=== PATIENT | female | born 1960 | race Caucasian/White ===

== ENCOUNTER → 2018-01-19 12:36 | Outpatient (CLI) | payer BC, SELFPAY ==
[2018-01-19 14:15] LABS: TSH (W/Ref FT4) 0.88 uIU/mL (0.358-3.74)
== END ==
PROVIDERS: PCP General Practice; Visit Provider General Practice
DX: E04.9 Nontoxic goiter, unspecified (principal)
CPT/HCPCS: 36415; 84443

== ENCOUNTER 2018-04-24 06:09 | Day surgery (SDC) | payer BC, SELFPAY ==
[2018-04-24 06:18] VITALS: BP 128/85; PULSE 82; RESP 16; TEMP 36.9; O2SAT 98
[2018-04-24] MEDS: Lactated Ringers 1,000 ML 80 ML IV (06:55)
--- NOTE | 2018-04-24 07:40 | W.PM.HP.N ---
Date of service: 04/24/18 Time of Service: 07:40 Assessment and Plan (1) Diverticulitis: Current visit: Yes Status: Chronic Patient with history of diverticulitis, with most recent flare in 02/2018 treated with Augmentin. She has no family history of colon cancer. She has not had any changes in bowel habits and her last Colonoscopy was in 2011. Will schedule colonoscopy 6-8wks out since patient's recent diverticulitis flare. -Discussed colonoscopy bowel prep and procedure. Discussed complications of procedure; bleeding, perforation, sedation/medication risks. Questions were answered to patient's satisfaction. No guarantees were implied or given. History of Present Illness Chief Complaint: Diverticulosis Narrative: 57 y/o female with history of multiple bouts of diverticulitis since August 2017, with most recent flare first week of 02/2018 is here today for colonoscopy pre-op. Last Colonoscopy was performed in 2011. 01/27/18 she reports that she started to have LLQ pain, that was dull and intermittent in nature, which progressed to a constant dull, ache by 02/08/18 along with chills. She denies having a fever. These symptoms were the same symptoms she had experienced in August of 2017 when she was diagnosed with diverticulitis. She called this office and spoke with Dr. Diaz and was started on Augmentin, which was completed on 02/18/18. Since completing the Augmentin she reports that her symptoms have improved, however she continues to feel a dull, ache in the LLQ intermittently. She denies any family history of colon cancer. She denies any changes in her bowel habits, melena, hematochezia. She denies any history of abnormal bleeding. Review of Systems Review of Systems Constitutional: Denies fever, chills, malaise, fatigue, weight loss, sweating; Neurological: denies headache, seizures, syncope; weakness Eyes: denies loss of vision, double vision, blurry vision, wears corrective lenses; Ears,nose, throat: denies loss of hearing, tinnitus, vertigo, epistaxis, hoarseness, throat swelling. Cardiac: denies chest pain with exertion, palpation, pain shooting from chest into arm. Respiratory: denies cough, sputum production, chest congestion, wheezing. Gastrointestinal: denies abdominal pain, dysphagia, nausea, vomiting, hematamesis, hematochezia, melena. Genitourinary: denies frequency, urgency, hesitancy, incontinence, and dysuria. Musculoskeletal: denies arthralgia, myalgia, fracture, joint pain, joint swelling, back pain. Psychiatric: denies anxiety, depression, difficulty concentrating, difficulty sleeping, irritability. All systems reviewed & are unremarkable except as noted in HPI and below PFSH Medical History Cervical cancer Hyperlipidemia Melanosis Tobacco use Social History Smoking/Tobacco Use Status: Current every day Surgical History Abdominal hysterectomy tubal ligation Meds Home Medications Medication Instructions Recorded Confirmed Type ibuprofen [Ibuprofen IB] 600 mg PO PRN 08/18/12 04/22/18 History multivitamin [Daily Multi-Vitamin] 1 ea PO DAILY 08/18/12 04/24/18 History ranitidine HCl [Zantac 75] 75 mg PO PRN 08/18/12 04/24/18 History cholecalciferol (vitamin D3) 1,000 unit PO DAILY 08/05/14 04/24/18 History vitamin E (dl, acetate) 400 unit PO DAILY 10/27/14 04/24/18 History acetaminophen [Tylenol Extra 500 mg PO PRN PRN 08/21/17 04/24/18 History Strength] calcium carbonate 500 mg calcium 500 mg PO BID tab 02/23/18 04/24/18 History (1,250 mg) tablet Allergies Allergy/AdvReac Type Severity Reaction Status Date / Time erythromycin base Allergy Intermediate Rash/Hives Verified 04/24/18 06:33 [Erythromycin Base] Exam Narrative Exam Narrative: General: Awake, alert, oriented x 3, well groomed Neurological: cranial nerves II-12 grossly intact, moves all extremities, no focal deficits. HEENT: Normacephalic, atruamatic, pupils are equal, round, and reactive to light, extraocular muscles intact, mucousa moist and pink. Neck: normal visual inspection, supple, trachea midline. Heart: Regular rate, rhythm Respiratory: No wheezing, cough, sputum production, or chest congestion. breathing unlabored. Abdomen: Soft, non-tender, non-distended, no hernias. Extremities: no cyanosis, clubbing or edema. Integument: warm, dry, normal turgor, no rashes, or lesion. Results Last Vital Signs Temp 36.9 C 04/24/18 06:18 Pulse 82 04/24/18 06:18 Resp 16 04/24/18 06:18 BP 128/85 04/24/18 06:18 Pulse Ox 98 04/24/18 06:18
--- NOTE | 2018-04-24 08:03 | BOWEL_PTH ---
PATIENT: Daniella Prescott LOC: [facility] U#:[id number] AGE/SX: 57/F ROOM: RE04/24/[address]: Sp Yip DO : 1960 BED: DIS: 04/24/2018 SPEC #: [id number] RECD: 04/24/18 12:52 STATUS: ESTELLE REQ #: [id number] MARTINEZ: 04/24/18 08:[address]: Sp Yip DEPT: Surgical Specimen RECD BY: Mouna Armenta ENTERED: 04/24/18 12:53 SP TYPE: Bowel OTHR DR: Jonah Moore Tissues: 1 - BIOPSY BOWEL Procedures: GROSS AND MICRO LEVEL 4 Comments: [id number]
--- NOTE | 2018-04-24 08:14 | W.COLOREPORT ---
Date of service: 04/24/18 Time of Service: 08:14 Colonoscopy Report Date of procedure: 04/24/18 Pre-op diagnosis general: Diverticulitis Post-op diagnosis procedure note: other (1. Rectal polyp 2. Mild sigmoid diverticulosis) Procedure: Colonoscopy to the cecum with biopsy by cold Surgeon: Sp Yip Anesthesia proc note operative: MAC (Keturah Joe CRNA; ASA 2 Mallampati class II) Estimated blood loss (mL): 1 Pathology: other (Rectal polyp) Complications: None Disposition: same day Indications: 57 y/o female with history of multiple bouts of diverticulitis since August 2017, with most recent flare first week of 02/2018 is here today for colonoscopy pre-op. Last Colonoscopy was performed in 2011. 01/27/18 she reports that she started to have LLQ pain, that was dull and intermittent in nature, which progressed to a constant dull, ache by 02/08/18 along with chills. She denies having a fever. These symptoms were the same symptoms she had experienced in August of 2017 when she was diagnosed with diverticulitis. She called this office and spoke with Dr. Diaz and was started on Augmentin, which was completed on 02/18/18. Since completing the Augmentin she reports that her symptoms have improved, however she continues to feel a dull, ache in the LLQ intermittently. She denies any family history of colon cancer. She denies any changes in her bowel habits, melena, hematochezia. She denies any history of abnormal bleeding Prep: Miralax/Dulcolax (Prep quality excellent) Procedure Start Time: 07:50 Procedure End Time: 08:05 Retraction Time: 9 Findings: In examining the colon from cecum to anus, patient was noted to have some mild sigmoid diverticulosis but no other abnormalities were noted in the colon. In the rectum one polyp was identified less than 1 cm in greatest diameter and removed by cold biopsy forceps no other abnormalities are noted. Procedure Description: The patient was seen in the day surgery waiting area. Her identification was confirmed, and procedure checked. She was then brought to the procedure room. Monitoring for telemetry, blood pressure, oxygen saturation, and end tidal CO2 monitoring were applied. An appropriate time out was performed to confirm, identification, allergies, medication, procedure, was performed. Sedation was titrated for affect by the [employer]ISER; Once adequate sedation was achieved, I performed a inspection of the external perineum, and a digitial rectal examination. No significant external abnormalities were noted. On digital rectal examination, there was no blood, no masses, good rectal tone. I advanced the colonoscope from the anus to the cecum under direct visualization. The cecum was identified by the ileal-cecal valve, and the appendiceal orifice. The scope was then withdrawn in circumferential manner from the cecum to the rectum. The patient was noted to have some mild sigmoid diverticulosis but no other abnormalities of the colon were found. The scope was then withdrawn into the rectum, and retroflexed. A less than 1 cm in greatest diameter polyp was identified in the rectum and removed by cold biopsy forceps; no other abnormalities were noted of the rectum and anorectum. The scope was then withdrawn, terminating the procedure. There were no complications during the procedure, and the patient tolerated the procedure well. She was returned to the day surgery recovery area in good condition. Plan: Endoscopy confirmatory for diverticular attack, there was no evidence of malignancy identified or other pathology. We will await pathology in regards to rectal polyp.
--- NOTE | 2018-04-24 08:23 | PDOC.DSDIS_ITS ---
Discharge Plan Disposition Patient Disposition: HOME Condition: Good Discharge Details Reason For Visit: colonoscopy for diverticulitis Attending Provider: Sp Yip Primary Care Provider: Jonah Moore Home Meds and New Rx's Prescriptions: Continue calcium carbonate [Calcium 500] 500 mg calcium (1,250 mg) tablet 500 mg PO BID RF: 0 multivitamin [Daily Multi-Vitamin] 1 EACH tablet 1 ea PO DAILY RF: 0 ranitidine HCl [Zantac 75] 75 MG tablet 75 mg PO PRN RF: 0 ibuprofen [Ibuprofen IB] 200 MG tablet 600 mg PO PRN RF: 0 vitamin E (dl, acetate) 400 UNIT capsule 400 unit PO DAILY RF: 0 cholecalciferol (vitamin D3) 1,000 UNIT capsule 1,000 unit PO DAILY RF: 0 acetaminophen [Tylenol Extra Strength] 500 MG tablet 500 mg PO PRN PRNRF: 0 Discharge Instructions Instructions: Colonoscopy (DC) Stand Alone Forms: Colonoscopy Post Instructions, Obinna Lombardo (DSU) Activity:: Activity as Tolerated Diet:: As Tolerated Discharge Orders Discharge Orders: Discharge Order (Routine); Ordered 04/24/18 Ordered By: Sp Yip DS: Diagnosis Discharge Diagnosis (1) Diverticulitis: Status: Chronic Asessment and Plan: Colonoscopy performed: Colonoscopy Report Date of procedure: 04/24/18 Pre-op diagnosis general: Diverticulitis Post-op diagnosis procedure note: other (1. Rectal polyp 2. Mild sigmoid diverticulosis) Procedure: Colonoscopy to the cecum with biopsy by cold Surgeon: Sp Yip Anesthesia proc note operative: MAC (Keturah Joe CRNA; ASA 2 Mallampati class II) Estimated blood loss (mL): 1 Pathology: other (Rectal polyp) Complications: None Disposition: same day Indications: 57 y/o female with history of multiple bouts of diverticulitis since August 2017 , with most recent flare first week of 02/2018 is here today for colonoscopy pre -op. Last Colonoscopy was performed in 2011. 01/27/18 she reports that she started to have LLQ pain, that was dull and intermittent in nature, which progressed to a constant dull, ache by 02/08/18 along with chills. She denies having a fever. These symptoms were the same symptoms she had experienced in August of 2017 when she was diagnosed with diverticulitis. She called this office and spoke with Dr. Diaz and was started on Augmentin, which was completed on 02/18/18. Since completing the Augmentin she reports that her symptoms have improved, however she continues to feel a dull, ache in the LLQ intermittently. She denies any family history of colon cancer. She denies any changes in her bowel habits, melena, hematochezia. She denies any history of abnormal bleeding Prep: Miralax/Dulcolax (Prep quality excellent) Procedure Start Time: 07:50 Procedure End Time: 08:05 Retraction Time: 9 Findings: In examining the colon from cecum to anus, patient was noted to have some mild sigmoid diverticulosis but no other abnormalities were noted in the colon. In the rectum one polyp was identified less than 1 cm in greatest diameter and removed by cold biopsy forceps no other abnormalities are noted. Procedure Description: The patient was seen in the day surgery waiting area. Her identification was confirmed, and procedure checked. She was then brought to the procedure room. Monitoring for telemetry, blood pressure, oxygen saturation, and end tidal CO2 monitoring were applied. An appropriate time out was performed to confirm, identification, allergies, medication, procedure, was performed. Sedation was titrated for affect by the [employer]SE [employer]UBING BACKER; Once adequate sedation was achieved, I performed a inspection of the external perineum, and a digitial rectal examination. No significant external abnormalities were noted. On digital rectal examination, there was no blood, no masses, good rectal tone. I advanced the colonoscope from the anus to the cecum under direct visualization. The cecum was identified by the ileal-cecal valve, and the appendiceal orifice. The scope was then withdrawn in circumferential manner from the cecum to the rectum. The patient was noted to have some mild sigmoid diverticulosis but no other abnormalities of the colon were found. The scope was then withdrawn into the rectum, and retroflexed. A less than 1 cm in greatest diameter polyp was identified in the rectum and removed by cold biopsy forceps; no other abnormalities were noted of the rectum and anorectum. The scope was then withdrawn, terminating the procedure. There were no complications during the procedure, and the patient tolerated the procedure well. She was returned to the day surgery recovery area in good condition. Plan: Endoscopy confirmatory for diverticular attack, there was no evidence of malignancy identified or other pathology. We will await pathology in regards to rectal polyp.
[2018-04-24 08:40] VITALS: BP 127/70; PULSE 60; RESP 20; TEMP 36.9; O2SAT 99
== END 2018-04-24 09:15 | disposition home or self-care (01) ==
PROVIDERS: PCP General Practice; Visit Provider Surgery
PROC: 0DJD8ZZ Inspection of Lower Intestinal Tract, Via Natural or Artificial Opening Endoscopic (ICD-10-PCS; CPT 45378; principal; 2018-04-24 07:30)
DX: K57.92 Diverticulitis of intestine, part unspecified, without perforation or abscess without bleeding (principal); K57.30 Diverticulosis of large intestine without perforation or abscess without bleeding; K62.1 Rectal polyp; K21.9 Gastro-esophageal reflux disease without esophagitis
CPT/HCPCS: 45380; 88305; NC

== ENCOUNTER 2018-11-13 10:14 | Outpatient (CLI) | payer BC, SELFPAY ==
--- NOTE | 2018-11-13 10:24 | DI.RAD_ITS ---
SYMPTOM/DIAGNOSIS: PAIN LEFT HIP: Two views. The left hip is well maintained. The articular surfaces are unremarkable. The bones are intact and normally mineralized. The sacroiliac joints and symphysis pubis are intact. The soft tissues are unremarkable. IMPRESSION: Negative left hip.
--- NOTE | 2018-11-13 10:24 | DI.RAD_ITS ---
SYMPTOM/DIAGNOSIS: PAIN LEFT SHOULDER: Multiple views. No bone or joint abnormality is identified. The soft tissues are unremarkable. IMPRESSION: No acute abnormality.
== END 2018-11-13 10:34 ==
PROVIDERS: PCP General Practice; Visit Provider General Practice
DX: M25.552 Pain in left hip (principal); M25.512 Pain in left shoulder
CPT/HCPCS: 73030; 73502

== ENCOUNTER 2018-11-27 08:58 | Outpatient (REF) | payer BC, SELFPAY ==
--- NOTE | 2018-11-27 08:50 | PAPFT_PTH ---
PATIENT: Daniella Prescott LOC: [facility] U#:[id number] AGE/SX: 58/F ROOM: RE11/27/[address]: Nadira Ellis MD : 1960 BED: DIS: 11/27/2018 SPEC #: [id number] RECD: 11/27/18 13:17 STATUS: ESTELLE REQ #: [id number] MARTINEZ: 11/27/18 08:[address]: Nadira Ellis DEPT: [facility] Cytology RECD BY: Mouna Armenta ENTERED: 11/27/18 13:18 SP TYPE: PAPFT OTHR DR: Jonah Moore Tissues: 1 - CX/ENDOCX FOR PAP SMEARS Procedures: PAP THIN PREP/[facility] Screening Comments: [id number]
== END 2018-11-27 09:18 ==
LOC: LBN 08:58
PROVIDERS: PCP General Practice; Visit Provider Obstetrics & Gynecology
DX: Z12.4 Encounter for screening for malignant neoplasm of cervix (principal)
CPT/HCPCS: 88142

== ENCOUNTER 2018-12-15 00:55 | Outpatient (CLI) | payer BC, SELFPAY ==
--- NOTE | 2018-12-15 07:30 | DI.MAMMO_ITS ---
SYMPTOM/DIAGNOSIS: SCREENING, Z12.31 MAMMOGRAM: Mammograms were interpreted according to the usual protocol including computer analysis with CAD system, tomosynthesis and C view imaging. The breasts are of moderate density with fairly symmetrical distribution of fibroglandular tissue. No dominant mass or clumped microcalcification is identified in either breast. The current examination is compared with previous examinations including 12/2017 and there has been no gross interval change in appearance in comparison with the previous studies. CONCLUSION: No specific evidence of malignancy at this time. Routine screening examinations are suggested at yearly intervals due to the family history of breast carcinoma. Category 1 breast density category B. MQSA ASSESSMENT OF FINDINGS: Negative. Category 1. Patient will receive a letter notifying them of these results. BI-RADS category B. There are scattered areas of fibroglandular density.
== END 2018-12-15 01:15 ==
PROVIDERS: PCP General Practice; Visit Provider Obstetrics & Gynecology
DX: Z12.31 Encounter for screening mammogram for malignant neoplasm of breast (principal); Z80.3 Family history of malignant neoplasm of breast
CPT/HCPCS: 77063; 77067

== ENCOUNTER 2019-05-28 10:02 | Outpatient (REF) | payer BC, SELFPAY ==
[2019-05-28 12:09] LABS: HGB 14.7 g/dL (12.0-15.5); Mean Corp. HGB Concentration 32.7 g/dL (32.0-36.0); Mean Corpuscular Hemoglobin 27.1 pg (27.0-33.0); Mean Corpuscular Volume 82.9 fL (80-95); Mean Platelet Volume 10.3 fL (8.0-11.0); Platelet Count 408 x1000/uL (130-400); RBC 5.43 m/cumm (4.00-5.20); RBC Distribution Width 13.6 % (11.7-14.6); White Blood Cell Count 7.99 k/cumm (4.4-10.8)
[2019-05-28 12:12] LABS: ALT 27 U/L (14-59); AST 14 U/L (15-37); Albumin 4.3 g/dL (3.4-5.0); Alkaline Phosphatase 81 U/L (46-116); Anion Gap 9.8 mmol/L (3-11); BUN 19 mg/dL (7-18); Bilirubin, Total 0.5 mg/dL (0.2-1.0); CO2 28.2 mmol/L (21.0-32.0); CREATININE 0.78 mg/dL (0.55-1.02); Calcium 9.8 mg/dL (8.5-10.1); Calculated LDL 190 mg/dL; Chloride 104 mmol/L (98-107); Cholesterol 273 mg/dL (<200); Glucose 87 mg/dL (74-106); HDL Cholesterol 43 mg/dL (40-60); Potassium 4.4 mmol/L (3.5-5.1); Sodium 142 mmol/L (136-145); TSH (W/Ref FT4) 1.29 uIU/mL (0.36-3.74); Total Protein 7.7 g/dL (6.4-8.2); Triglyceride 200 mg/dL (<150)
[2019-05-31 11:32] LABS: Hepatitis C Ab w Rflx HCV PCR Negative (Negative)
== END 2019-05-28 10:22 ==
LOC: NCHCN 10:02
PROVIDERS: PCP Nurse Practitioner Family; Visit Provider Nurse Practitioner Family
DX: Z00.00 Encounter for general adult medical examination without abnormal findings (principal); Z13.220 Encounter for screening for lipoid disorders; Z13.29 Encounter for screening for other suspected endocrine disorder; Z13.0 Encounter for screening for diseases of the blood and blood-forming organs and certain disorders involving the immune mechanism; Z13.228 Encounter for screening for other metabolic disorders; Z11.59 Encounter for screening for other viral diseases
CPT/HCPCS: 80053; 80061; 85027; 86803; 84443

== ENCOUNTER 2019-08-12 06:20 | Emergency (ER) | payer BC, SELFPAY ==
[2019-08-12] VITALS (123 sets, daily range): BP systolic 110–159; BP diastolic 48–92; PULSE 57–86; RESP 11–34; TEMP 36.6; O2SAT 91–98
--- NOTE | 2019-08-12 06:45 | DI.RAD_ITS ---
EXAM: XR CHEST 2V PA LATERAL CLINICAL HISTORY: chest pain TECHNIQUE: 2D digital imaging was performed. COMPARISON: No exams were available for comparison FINDINGS: MEDIASTINUM: Normal. HEART: Normal. PULMONARY VASCULATURE: Normal. LUNGS: Clear. PLEURAL SPACE: No pleural effusion or pneumothorax. BONE:Normal. OTHER FINDINGS:Normal. IMPRESSION: No acute pulmonary findings. DATA REPOSITORY: RADIATION DOSE DELIVERED:
[2019-08-12] MEDS: Normal Saline Flush 10 ML SYR IVP (06:51)
[2019-08-12] MEDS: Aspirin 81 MG CHEW 324 MG CH (06:51)
--- NOTE | 2019-08-12 06:56 | W.ED.GENAD ---
Discharge Plan Disposition Patient Disposition: HOME Condition: Stable Discharge Details Chief Complaint: Chest Pain Clinical Impression: Palpitations, Chest pain Primary Care Provider: Corwin Zuniga ED Provider: Sixto Mcneal Home Meds and New Rx's Prescriptions: New aspirin 325 mg tablet 325 mg PO DAILY Qty: 30 RF: 0 Continued calcium carbonate [Calcium 500] 500 mg calcium (1,250 mg) tablet 500 mg PO BID RF: 0 biotin 1 mg capsule 1 mg PO DAILY RF: 0 multivitamin [Daily Multi-Vitamin] 1 EACH tablet 1 ea PO DAILY RF: 0 cholecalciferol (vitamin D3) 1,000 UNIT capsule 1,000 unit PO DAILY RF: 0 acetaminophen [Tylenol Extra Strength] 500 MG tablet 500 mg PO PRN PRNRF: 0 famotidine 20 mg Tablet 20 mg PO DAILY RF: 0 Fish Oil 300-500 mg Capsule 1 cap PO DAILY RF: 0 Discharge Instructions Instructions: Chest Pain (ED), Palpitations (ED) Additional Instructions: Please contact your primary care physician to arrange follow-up. Call today. You should have an outpatient stress test scheduled as soon as possible. Return to the ER for any worsening or new concerning symptoms. Referrals: Corwin Zuniga, [employer]PERATIONS SUPERVISOR 2ND [employer]IFT [Primary Care Provider] - Discharge Data Discharge Date/Time-TO BE ENTERED AT DEPARTURE: 08/12/19 11:00 Medical Decision Making <Malachi Mills MD - Last Filed: 08/12/19 19:57> Patient presenting for evaluation of a week's worth of fleeting palpitations and central chest pain as well as more prolonged achiness in the left arm and jaw that has occurred the last couple of nights. Currently, essentially pain-free. She still smokes a little bit although has cut back a great deal. Father did have heart disease/heart attack in his early 50s. No other cardiac risk factors. No leg pain or leg swelling. Initial EKG is nonspecific and nondiagnostic. We will give the patient aspirin while starting work-up. Will obtain laboratory studies including 2 troponins and d-dimer. Chest x-ray ordered. Patient is low risk for PE by revised Allen and Well's score. Assuming normal troponins, she is also low risk for cardiac disease based on HEART score and EDACS. 8:20 - Patient's labs are fine. CBC, CMP, coags unremarkable. First troponin and d-dimer negative. Chest x-ray unremarkable per my review and preliminary radiology read. Plan for repeat EKG and troponin. If negative discharge to follow-up with PCP for outpatient stress testing and Holter monitor. Care signed out to Dr. Mcneal. Imaging Data Radiologic Study: Attestation: I personally reviewed and interpreted this imaging study as follows: Imaging: X-Ray My impression: Negative Radiologist's impression: TECHNIQUE: Imaging protocol: XR of the chest Views: 2 views. COMPARISON: No relevant prior studies available. FINDINGS: Lungs: Unremarkable. No consolidation. Pleural space: Unremarkable. No pleural effusion. No pneumothorax. Heart/Mediastinum: Unremarkable. No cardiomegaly. Bones/joints: Unremarkable. IMPRESSION: No acute findings. Dictated and Authenticated by: Luis Barnes MD. Lab Data Lab results reviewed: Yes I reviewed the patient's lab results. ECG Data Attestation: I personally reviewed and interpreted this ECG (s) as follows: Prior ECG tracings: not available for review Interpretation: Normal sinus rhythm at a rate of 74. Normal intervals and axis. Nonspecific ST changes. Nondiagnostic. <Sixto Mcneal MD - Last Filed: 08/22/19 09:24> Medical Records Medical records narrative: Care signed out by Dr. Mills, please see his documentation regarding initial ED presentation and course. Plan at signout was to follow-up on delta troponin and repeat ECG and if no significant changes likely discharge with outpatient follow-up. Repeat ECG was reviewed and interpreted by me: Sinus rhythm 64 bpm, nonspecific ST findings with T wave inversion noted in lead III, no significant changes from prior ECG. Delta troponin negative and unchanged. Patient was reassessed and notes asymptomatic without chest pain. I called and spoke with the patient's primary care provider, Corwin Zuniga and discussed recommendation for outpatient follow-up and stress testing. Corwin will be ordering stress test today. Plan discussed with patient. Plan for close outpatient follow-up. Disposition decision was made weighing the risks and benefits of hospitalization versus outpatient treatment, the risk for further decompensation, and the patient's wishes. The patient was stable and requested discharge. Prior to discharge, my usual and customary return precautions were reviewed with the patient - this included follow-up instructions and reason to return to the emergency department if condition worsens, does not improve as expected, or other new concerns arise. HPI <Malachi Mills MD - Last Filed: 08/12/19 19:57> General Mode of arrival: ambulatory. Date/Time Provider Initiated Documentation: 08/12/19 06:34. Limitations to Documentation: no limitations. Information obtained by: patient and RN notes reviewed. HPI Narrative: Patient presents to ED for evaluation of palpitations and chest pain. Patient reports that for the last week, she has experienced palpitations with associated sharp central chest pain that lasts less than 10 seconds in duration. It has been intermittent on and off for the last week. In the last couple of days, she has developed an achy pain in the left shoulder and upper arm. There is no associated chest pain. The arm pain sometimes radiates to the jaw and down into the hand. There is no associated shortness of breath. There is no dizziness or diaphoresis. She has had some intermittent nausea and fatigue. The nausea is not associated with the pain. Pain seemed worse in her arm Friday night. There is essentially no discomfort currently other than slight ache in the left shoulder. She has no fever or cough. She has no leg pain or leg swelling. Related Data Home Medications Medication Instructions Recorded Confirmed multivitamin [Daily Multi-Vitamin] 1 ea PO DAILY 08/18/12 08/12/19 cholecalciferol (vitamin D3) 1,000 unit PO DAILY 08/05/14 08/12/19 acetaminophen [Tylenol Extra 500 mg PO PRN PRN 08/21/17 08/12/19 Strength] calcium carbonate 500 mg calcium 500 mg PO BID tab 02/23/18 08/12/19 (1,250 mg) tablet biotin 1 mg capsule 1 mg PO DAILY 11/27/18 08/12/19 Fish Oil 1 cap PO DAILY 08/12/19 08/12/19 aspirin 325 mg PO DAILY #30 tab 08/12/19 famotidine 20 mg PO DAILY 08/12/19 08/12/19 Previous Rx's Medication Instructions Recorded aspirin 325 mg PO DAILY #30 tab 08/12/19 Allergies Allergy/AdvReac Type Severity Reaction Status Date / Time erythromycin base Allergy Intermediate Rash/Hives Verified 08/12/19 06:28 [Erythromycin Base] General Stated Complaint: Chest Pain ALFONSO: 2 Review of Systems <Malachi Mills MD - Last Filed: 08/12/19 19:57> Narrative: 03/22 Review of Systems completed and is negative except as stated above in HPI (Systems reviewed: Const, Eyes, ENT, Resp, CV, GI, , MSK, Skin, Neuro) PFSH <Malachi Mills MD - Last Filed: 08/12/19 19:57> Medical History Cervical cancer Hyperlipidemia Melanoma of right upper arm (Inactive 10/30/15) Melanosis Tobacco use Surgical History Abdominal hysterectomy H/O colonoscopy (Resolved 04/24/18) dr powers, no abnormalities, repeat 10 years tubal ligation Social History Smoking/Tobacco Use Status: Current-Occasional Alcohol Intake: never Drug use: Never Substance use type: does not use Do you feel safe at home: Yes Do you feel safe in your relationship?: Yes Exam <Malachi Mills MD - Last Filed: 08/12/19 19:57> Narrative Exam Narrative: Vitals: Afebrile. Normal vitals with blood pressure being a little elevated. Room air saturation mid 90s. Const: WDWN male in NAD. HEENT: NC/AT. Normal facial exam. Eyes: Normal conjunctiva and sclera. Neck: Supple. Trachea midline. Lungs: Normal respiratory effort. Lungs are clear. Cor: RRR with mumur. Good distal pulses. GI: Soft. NT/ND. No guarding or rebound. Neuro: A+O x 3. Normal speech, mentation, gait. Cranial nerves II - XII grossly intact. No gross motor or sensory deficit. Ext: No C/C/E. No calf tenderness. Skin: Warm and dry without rash. Course <Malachi Mills MD - Last Filed: 08/12/19 19:57> Vital Signs Vital signs: Vital Signs Temperature 98 F 08/12/19 06:23 Pulse 86 08/12/19 06:23 Respiratory Rate 12 08/12/19 06:23 Pulse Oximetry 95 08/12/19 06:23 Temperature 98 F 08/12/19 06:23 Temperature Source Oral 08/12/19 06:23 Pulse 86 08/12/19 06:23 Respiratory Rate 20 08/12/19 06:30 Respiratory Effort Non-Labored 08/12/19 06:30 Respiratory Depth Normal 08/12/19 06:30 Respiratory Pattern Normal 08/12/19 06:30 Blood Pressure Position Sitting 08/12/19 06:23 Pulse Oximetry 95 08/12/19 06:23 Oxygen Delivery Method Room Air 08/12/19 06:23 Oxygen Flow Rate 0 08/12/19 06:23 Pain Level 1 08/12/19 06:30 Sign Out <Malachi Mills MD - Last Filed: 08/12/19 19:57> Sign Out Data: Sign Out Comment: Pending repeat troponin and EKG Last updated by Malachi Mills MD at 08/12/19 08:25
[2019-08-12 07:02] LABS: Abs Immature Grans 0.01 k/cumm (0.0-0.09); Absolute Basophil Count 0.04 k/cumm (0.0-0.2); Absolute Eosinophil Count 0.13 k/cumm (0.0-0.7); Absolute Lymphocyte Count 2.66 k/cumm (1.2-3.4); Absolute Neutrophil Count 6.89 k/cumm (1.2-6.7); Basophils % 0.4; Eosinophils % 1.3; HCT 45.6 % (36.0-46.0); HGB 15.1 g/dL (12.0-15.5); Immature Grans % 0.1 %; Lymphocytes % 25.8; Mean Corp. HGB Concentration 33.1 g/dL (32.0-36.0); Mean Corpuscular Hemoglobin 27.1 pg (27.0-33.0); Mean Corpuscular Volume 81.7 fL (80-95); Mean Platelet Volume 10.4 fL (8.0-11.0); Monocytes % 5.8; Neutrophils % 66.6; Platelet Count 374 x1000/uL (130-400); RBC 5.58 m/cumm (4.00-5.20); RBC Distribution Width 14.1 % (11.7-14.6); White Blood Cell Count 10.33 k/cumm (4.4-10.8)
[2019-08-12 07:16] LABS: PTT Activated 27.6 sec (21.0-31.4); Prothrombin Time 9.8 sec (9.3-11.0)
[2019-08-12 07:23] LABS: ALT 22 U/L (14-59); AST 14 U/L (15-37); Albumin 4.2 g/dL (3.4-5.0); Alkaline Phosphatase 61 U/L (46-116); Anion Gap 11.3 mmol/L (3-11); BUN 17 mg/dL (7-18); Bilirubin, Total 0.5 mg/dL (0.2-1.0); CO2 26.7 mmol/L (21.0-32.0); CREATININE 0.77 mg/dL (0.55-1.02); Calcium 9.1 mg/dL (8.5-10.1); Chloride 105 mmol/L (98-107); Glucose 105 mg/dL (74-106); Magnesium 1.9 mg/dL (1.8-2.4); Potassium 3.9 mmol/L (3.5-5.1); Sodium 143 mmol/L (136-145); Total Protein 7.7 g/dL (6.4-8.2); Troponin I < 0.05 ng/Ml (<0.06)
--- NOTE | 2019-08-12 07:44 | DI.VRAD_ITS ---
PROCEDURE INFORMATION: Exam: XR Chest, 2 Views Exam date and time: 08/12/2019 6:48 AM Age: 59 years old Clinical indication: Other: Chest pain TECHNIQUE: Imaging protocol: XR of the chest Views: 2 views. COMPARISON: No relevant prior studies available. FINDINGS: Lungs: Unremarkable. No consolidation. Pleural space: Unremarkable. No pleural effusion. No pneumothorax. Heart/Mediastinum: Unremarkable. No cardiomegaly. Bones/joints: Unremarkable. IMPRESSION: No acute findings. Dictated and Authenticated by: Luis Barnes MD. Ordering:CLARISA Ly MD
[2019-08-12 07:49] LABS: D-Dimer 414 ng/mlFEU (<500)
[2019-08-12 10:10] LABS: Troponin I < 0.05 ng/Ml (<0.06)
== END 2019-08-12 11:00 | disposition home or self-care (01) ==
PROVIDERS: Emergency Medicine; Emergency Provider Student in an Organized Health Care Education/Training Program; PCP Nurse Practitioner Family
DX: R00.2 Palpitations (principal); R07.9 Chest pain, unspecified; F17.210 Nicotine dependence, cigarettes, uncomplicated
CPT/HCPCS: 36415; 80053; 93005; 99285; 71046; 83735; 84484; 85025; 85379; 85610; 85730; 93010

== ENCOUNTER 2019-08-17 00:07 | Outpatient (CLI) | payer BC, SELFPAY ==
--- NOTE | 2019-08-17 14:00 | ETT_ITS ---
APPROVED REPORT Exam: Exercise Treadmill Patient Location: Out-Patient Room/Bed: Stress Nurse: Sharonda Singh RN BMI: 30.46 Baseline Rhythm: Sinus Rhythm Indications: Episode of chest pain with radiation into her left arm and neck. Intermittent palpitatio ns Medical History Cardiac Medications: Aspirin Allergies: Erythromycin Cardiac Risk Factors: FHX of CAD, Smoking Pretest Chest Pain Characteristics: Non-exertional Chest pain Exercise History: Physically active Lung Sounds: Clear to auscultation Heart Sounds: Regular Stress Test Details Test: Exercise stress testing was performed using a Marcell protocol. Rest Stress HR Resting HR Supine: 56 bpm Max Heart Rate (APMHR): 161 bpm Resting HR Standin bpm Target HR (85% APMHR): 136 bpm Max HR Achieved: 167 bpm % of APMHR: 103 Recovery HR: 79 bpm HR response to stress: Normal HR response to stress BP Resting BP Supine: 130/70 mmHg Resting BP Standin/80 mmHg Max BP: 180/70 mmHg Recovery BP: 115/76 mmHg ECG Resting ECG: Sinus Rhythm Stress ECG: Sinus Tachycardia ST Change: No significant ST segment changes Arrhythmia: None Recovery ECG: Sinus Rhythm Recovery ST Change: No significant ST segment changes Recovery Arrhythmia: Rare PVC Clinical Reason for Termination: Fatigue Stress Symptoms: Very mild (1 out of 10) chest discomfort during peak exercise, lasting only few seco nds in duration. Exercise duration: 9 min20 sec Highest Stage Reached: Stage 4: 4.2 mph at 16% grade. Exercise capacity: 10.72 METs Functional Capacity: Average Capacity Stress ECG Conclusion 1. The patient exercised for 9 minutes (11 METS). Rate-pressure product was 23,000. 2. The patient had no symptoms concerning for ischemia. 3. There is no evidence of ischemia on the ECG at this level of exertion. 4. The Flores Score ( 9) estimates an annual cardiovascular mortality of 0% and a five year survival of 95%. Using the Flores Score there is a low probability of any angiographic coronary disease. Protocol Used: Marcell Protocol Stress Test Summary STAGE Time (mins) Speed (mph) Grade (%) HR BP SYMPTOMS METS Supine 56 130/70 Standing 71 125/80 1 3 1.7 10 120 120/80 4.6 2 6 2.5 12 146 115/60 7 3 9 3.4 14 158 140/70 10.2 4 12 4.2 16 160 12.9 1 min recovery 124 180/70 3 min recovery 94 130/74 6 min recovery 79 115/76
== END 2019-08-17 00:27 ==
PROVIDERS: PCP Nurse Practitioner Family; Visit Provider Nurse Practitioner Family
DX: R07.89 Other chest pain (principal); R00.2 Palpitations; F17.200 Nicotine dependence, unspecified, uncomplicated; Z82.49 Family history of ischemic heart disease and other diseases of the circulatory system
CPT/HCPCS: 93017

== ENCOUNTER 2019-08-20 02:04 | Outpatient (CLI) | payer BC, SELFPAY | END 2019-08-20 02:24 | PROVIDERS: PCP Nurse Practitioner Family; Visit Provider Nurse Practitioner Family | DX: R00.2 Palpitations (principal); I49.1 Atrial premature depolarization; I49.3 Ventricular premature depolarization | CPT/HCPCS: 93225 ==

== ENCOUNTER 2019-08-25 08:09 | Outpatient (CLI) | payer BC, SELFPAY ==
--- NOTE | 2019-08-26 08:51 | W.HOLTRPT ---
Date of service: 08/26/19 Time of Service: 08:51 Holter Monitor Report Holter Monitor Note: This is a 1 day Holter monitor ordered for indication of palpitations. ?Patient was in normal sinus rhythm for majority of the recording. ?There were 0 episodes of supraventricular tachycardia and 8 singular premature atrial contractions. ?There were 0 episodes of ventricular tachycardia rare (46 total) single ventricular ectopic beats. ?There were no episodes of atrial fibrillation, no pauses greater than 3 seconds and no evidence of high degree heart block. ?There were no patient triggered events.
== END 2019-08-25 08:29 ==
PROVIDERS: PCP Nurse Practitioner Family; Visit Provider Nurse Practitioner Family
DX: R00.2 Palpitations (principal); I49.1 Atrial premature depolarization; I49.3 Ventricular premature depolarization
CPT/HCPCS: 93226

== ENCOUNTER 2019-12-03 14:21 | Outpatient (REF) | payer BC, SELFPAY ==
[2019-12-06 18:59] LABS: SARS-CoV-2 RNA Undetected (Undetected); SARS-CoV-2 Specimen Source Nasopharynx
== END 2019-12-03 14:41 ==
LOC: NCHCN 14:21
PROVIDERS: PCP Nurse Practitioner Family; Visit Provider Nurse Practitioner Family
DX: Z20.828 Contact with and (suspected) exposure to other viral communicable diseases (principal)
CPT/HCPCS: U0003

== ENCOUNTER 2019-12-22 00:45 | Outpatient (CLI) | payer BC, SELFPAY ==
--- NOTE | 2019-12-22 | DI.US_ITS ---
APPROVED REPORT EXAM: Comprehensive 2D, Doppler, and color-flow Echocardiogram Patient Location: Out-Patient Mannequin Decorator: Malia Almanza RDCS (AE) Indications: Murmur Other Information Study Quality: Good Conclusion Left ventricular wall thickness and chamber size. Estimated ejection fraction is 55 to 60%. There a re no segmental wall motion abnormalities The right ventricle is normal in size and systolic function Both atria are normal in size The aortic valve is trileaflet and sclerotic. There is mild aortic stenosis. Peak gradient is 18 mm Hg, mean is 9. Calculated aortic valve area is 1.45 cm2. There is no aortic regurgitation Mitral valve is structurally normal ; there is trace mitral regurgitation The tricuspid valve is structurally normal. There is trace cuspid regurgitation. Estimated right ve ntricular systolic pressure is normal at 25 mmHg Structurally normal pulmonic valve with trace regurgitation Wall motion Left Ventricle The left ventricle is normal size. The left ventricular systolic function is normal. The left ventric ular ejection fraction is within the normal range. There is normal left ventricular wall thickness. T here is normal LV segmental wall motion. There is no ventricular septal defect visualized. LVEF is 58 %. LVEF is 55-60%. Right Ventricle The right ventricle is normal size. The right ventricular systolic function is normal. The RVSP is 25 .0 mmHg. Atria The left atrium size is normal. The right atrium size is normal. The interatrial septum is intact wit h no evidence for an atrial septal defect. Aortic Valve Aortic valve is calcified. Aortic valve leaflets are mildly thickened. Aortic valve is trileaflet. Mi ld aortic stenosis. Peak aortic valve gradient is 17.7mmHg. Highest mean aortic valve gradient is 9.3 mmHg. Calculated PHUC by the continuity equation is 1.46 cm2. No aortic regurgitation is present. Mitral Valve The mitral valve is normal in structure. No evidence of mitral valve stenosis. Trace mitral regurgita tion. Tricuspid Valve The tricuspid valve is normal in structure. There is no tricuspid valve stenosis. Trace tricuspid reg urgitation. Pulmonic Valve The pulmonary valve is normal in structure. There is no pulmonic valvular stenosis. Trace pulmonic re gurgitation. Great Vessels The aortic root is normal in size. The ascending aorta is mildly dilated. Aortic arch is normal in ca liber. IVC is normal in size and collapses >50% with inspiration. Pericardium There is no pericardial effusion. 2D Dimensions IVSD d PLAX 0.94 cm F: 0.6-1.0 LV Vol A2C d MOD 98.2 mL LVPW d PLAX 0.92 cm F: 0.6 - 1.0 LV Vol A4C d MOD 96.1 mL LVID d PLAX 4.34 cm F: 3.8 - 5.2 LA vol/ BSA A2C s A-L 19.3 mL/m2 LVDs 3.05 cm F: 2.2 - 3.5 LA vol/ BSA A4C s A-L 21.2 mL/m2 Ao Root d 2.96 cm F: 2.7 - 3.3 LA Vol/ BSA Biplane s A-L 20.9 mL/m2 RA Area A4C 10.37 cm2 LA Area A4C s MOD 14.85 cm2 RA Vol/ BSA A4C s A-L 12.3 mL/m2 LA Area A2C s MOD 13.73 cm2 Ao Asc Diam d 3.53 cm F: 2.3 - 3.1 LV EF A4C MOD 56.9 % LV EF Teichholz 56.6 % LV EF A2C MOD 58.7 % LVEF (Beauchamp's) 56.12 % F: 54 - 74 LV EF Biplane MOD 56.1 % LV Volume 75.47 mL F: 46 - 106 SV 54.50 mL LV Volume Index 41.92 mL/m2 F: 29 - 61 SV Index 30.20 mL/m2 LV Vol Biplane MOD 97.1 mL FS 29.40 % M-Mode TAPSE 2.26 cm (M/F) >1.7 LV Diastology MV E' medial 0.106 (>0.07 m/s) E/A Ratio 1.0 LV E/e MED 7.65 (<14) MV E Vmax 0.82 (0.4-1.3 m/s) MV E' lateral 0.127 (>0.1 m/s) MV A Vmax 0.85 (0.4-1.3 m/s) LV E/e LAT 6.40 (<14) MV E/A Ratio 0.91 MV E/E' medial 7.68 MV E/E' lateral 6.43 Aortic Valve LVOT Area 3.15 cm2 AoV Area Vmax 1.46 cm2 LVOT Vmax 0.97 m/s AoV Area/ BSA (Vmax) 0.81 cm2/m2 LVOT Mean Bobo. 0.59 m/s PHUC Mean Bobo. 1.32 cm2 LVOT Peak Grad 3.8 mmHg PHUC Mean Bobo. Index 0.73 cm2/m2 LVOT Mean Grad 1.7 mmHg LVOT VTI 0.209 m LVOT Diam s 2.00 cm AoV Vmax 2.11 m/s Velocity Ratio 0.45 AoV Mean Bobo. 1.41 m/s AoV Peak Grad 17.7 mmHg LVOT SV 65.90 mL AoV Mean Grad 9.3 mmHg AoV VTI 0.454 m AoV Area VTI 1.45 cm2 AoV Area/ BSA (VTI) 0.80 cm/m2 Mitral Valve MV DT 289 (160-240 msec) MV PHT 84 msec MV Area PHT 2.63 cm2 Pulmonary Valve PV Vmax 1.05 (0.5-1.5 m/s) RVOT Peak Gr. 1.56 mmHg PV Peak Grad 4.4 mmHg RVOT Mean Gr. 0.70 mmHg PV Mean Grad 2.4 mmHg RVOT VTI 0.129 m PV VTI 0.247 m RVOT Vmax 0.63 m/s Tricuspid Valve TR Peak Grad 22.0 mmHg TR Vmax 2.35 m/s RA Pressure 3.00 mmHg RVSP (TR) 25.0 mmHg
== END 2019-12-22 01:05 ==
PROVIDERS: PCP Nurse Practitioner Family; Visit Provider Nurse Practitioner Family
DX: R01.1 Cardiac murmur, unspecified (principal)
CPT/HCPCS: 93306

== ENCOUNTER 2020-01-11 01:01 | Outpatient (CLI) | payer BC, SELFPAY ==
--- NOTE | 2020-01-11 | DI.MAMMO_ITS ---
EXAM: MAMMO SCREENING CLINICAL HISTORY: SCREENING, Z12.39 TECHNIQUE: Mammograms were interpreted according to the usual protocol including computer analysis w [employer] CAD system, tomosynthesis and C-view imaging. COMPARISON: FINDINGS: The breasts are of moderate density with fairly symmetrical distribution of fibroglandular tissue. N o dominant mass or clumped microcalcification is identified in either breast. Current examination is compared with previous examinations including December 2018 and there has been no gross interval change in appearance in comparison with the prior studies. IMPRESSION: No specific evidence of malignancy at this time. Routine screening examinations are suggested at yea rly intervals due to the family history of breast carcinoma. Category: BI-RADS Cat 1 - Negative Breast Density - Category B - Scattered areas of fibroglandular density
== END 2020-01-11 01:21 ==
PROVIDERS: PCP Nurse Practitioner Family; Visit Provider Nurse Practitioner Family
DX: Z12.31 Encounter for screening mammogram for malignant neoplasm of breast (principal); R92.2 Inconclusive mammogram; Z80.3 Family history of malignant neoplasm of breast
CPT/HCPCS: 77063; 77067

== ENCOUNTER 2020-04-07 15:55 | Outpatient (REF) | payer BC, SELFPAY ==
[2020-04-07 20:24] LABS: Calculated LDL 95 mg/dL (<100); Cholesterol 163 mg/dL (<200); HDL Cholesterol 40 mg/dL (40-60); Triglyceride 144 mg/dL (<150)
== END 2020-04-07 16:15 ==
LOC: NCHCN 15:55
PROVIDERS: PCP Nurse Practitioner Family; Visit Provider Nurse Practitioner Family
DX: E78.5 Hyperlipidemia, unspecified (principal)
CPT/HCPCS: 80061

== ENCOUNTER 2020-04-18 14:08 | Outpatient (REF) | payer BC, SELFPAY ==
[2020-04-22 21:23] LABS: Patient Race White; SARS-CoV-2 RNA Undetected (Undetected); SARS-CoV-2 Specimen Source Nasal
== END 2020-04-18 14:28 ==
LOC: NCHCN 14:08
PROVIDERS: PCP Nurse Practitioner Family; Visit Provider Nurse Practitioner Family
DX: Z11.59 Encounter for screening for other viral diseases (principal)
CPT/HCPCS: U0003

== ENCOUNTER 2021-01-16 11:20 | Outpatient (REF) | payer BC, SELFPAY ==
--- NOTE | 2021-01-16 09:40 | PAPFT_PTH ---
PATIENT: Daniella Prescott LOC: [facility] U#:[id number] AGE/SX: 60/F ROOM: RE01/16/[address]: Bernadine Bronson DO : 1960 BED: DIS: 01/16/2021 SPEC #: [id number] RECD: 01/16/21 12:54 STATUS: ESTELLE REQ #: [id number] MARTINEZ: 01/16/21 09:[address]: Bernadine Bronson DEPT: [facility] Cytology RECD BY: oMuna Armenta ENTERED: 01/16/21 12:55 SP TYPE: PAPFT OTHR DR: Jeffrey Shrestha Tissues: 1 - CX/ENDOCX FOR PAP SMEARS Procedures: PAP THIN PREP/UVM Screening HPV DNA PROBE Comments: [id number]
== END 2021-01-16 11:21 | disposition home or self-care (01) ==
LOC: LBN 11:20
PROVIDERS: PCP Physician Assistant; Visit Provider Obstetrics & Gynecology
DX: Z12.4 Encounter for screening for malignant neoplasm of cervix (principal); Z87.42 Personal history of other diseases of the female genital tract; Z11.51 Encounter for screening for human papillomavirus (HPV)
CPT/HCPCS: 88142; 87624

== ENCOUNTER 2021-02-20 01:18 | Outpatient (CLI) | payer BC, SELFPAY ==
--- NOTE | 2021-02-20 07:45 | DI.MAMMO_ITS ---
Exam(s) MAMMO SCREENING EXAM: MAMMO SCREENING CLINICAL HISTORY: screening TECHNIQUE: Mammograms were interpreted according to the usual protocol including computer analysis w [employer] CAD system, tomosynthesis and C-view imaging. COMPARISON: 2011 through 2019 FINDINGS: The breasts are composed of scattered fibroglandular densities, Breast Density category B. No suspicious masses or suspicious microcalcifications are seen. No skin thickening or abnormal axillary lymph nodes are seen. There has been no significant change from prior exams. IMPRESSION: BI-RADS Category 1, Negative mammogram Yearly screening mammography is recommended. Breast Density - Category B, scattered fibroglandular densities. A negative radiographic report should not delay biopsy if a dominant or clinically suspicious mass is present. Up to ten percent of cancers are not identified on mammography. A negative report may reinforce clinical impression. Adenosis and dense breasts may obscure an underlying neoplasm. False positive reports average 6 to 10%. Patient will receive a letter notifying them of these results.
== END 2021-02-20 01:38 ==
PROVIDERS: PCP Physician Assistant; Visit Provider Obstetrics & Gynecology
DX: Z12.31 Encounter for screening mammogram for malignant neoplasm of breast (principal)
CPT/HCPCS: 77063; 77067

== ENCOUNTER 2021-08-10 13:49 | Outpatient (REF) | payer BC, SELFPAY ==
[2021-08-10 16:29] LABS: Anion Gap 9.5 mmol/L (3-11); BUN 15 mg/dL (7-18); CO2 25.5 mmol/L (21.0-32.0); CREATININE 0.8 mg/dL (0.55-1.02); Calcium 9.6 mg/dL (8.5-10.1); Chloride 107 mmol/L (98-107); FREE T4 0.94 ng/dL (0.76-1.46); Glucose 80 mg/dL (74-106); Potassium 4.2 mmol/L (3.5-5.1); Sodium 142 mmol/L (136-145); TSH 0.94 uIU/mL (0.36-3.74)
== END 2021-08-10 13:50 | disposition home or self-care (01) ==
LOC: NCHCN 13:49
PROVIDERS: PCP Physician Assistant; Visit Provider Physician Assistant
DX: I10 Essential (primary) hypertension (principal); R68.89 Other general symptoms and signs
CPT/HCPCS: 80048; 84439; 84443

== ENCOUNTER 2022-02-12 13:47 | Outpatient (REF) | payer BC, SELFPAY ==
--- NOTE | 2022-02-12 13:25 | PAPFT_PTH ---
PATIENT: Daniella Prescott LOC: [facility] U#:[id number] AGE/SX: 61/F ROOM: RE02/12/[address]: Bernadine Bronson DO : 1960 BED: DIS: 02/12/2022 SPEC #: [id number] RECD: 02/12/22 18:10 STATUS: ESTELLE REQ #: [id number] MARTINEZ: 02/12/22 13:[address]: Bernadine Bronson DEPT: [facility] Cytology RECD BY: Mouna Armenta ENTERED: 02/12/22 18:11 SP TYPE: PAPFT OTHR DR: Jeffrey Shrestha Tissues: 1 - CX/ENDOCX FOR PAP SMEARS Procedures: PAP THIN PREP/UVM Screening HPV DNA PROBE Comments: [id number]
== END 2022-02-12 13:48 | disposition home or self-care (01) ==
LOC: LBN 13:47
PROVIDERS: PCP Physician Assistant; Visit Provider Obstetrics & Gynecology
DX: Z12.72 Encounter for screening for malignant neoplasm of vagina (principal); Z11.51 Encounter for screening for human papillomavirus (HPV); Z85.41 Personal history of malignant neoplasm of cervix uteri
CPT/HCPCS: 88142; 87624

== ENCOUNTER → 2022-02-25 02:11 | Outpatient (CLI) | payer BC, SELFPAY ==
--- NOTE | 2022-02-25 07:45 | DI.MAMMO_ITS ---
Exam(s) MAMMO SCREENING EXAM: MAMMO SCREENING CLINICAL HISTORY: screening TECHNIQUE: Mammograms were interpreted according to the usual protocol including computer analysis w [employer] CAD system, tomosynthesis and C-view imaging. COMPARISON: 2012 through 2020 FINDINGS: The breasts are composed of mainly fatty density , Breast Density category A. No suspicious masses or suspicious microcalcifications are seen. No skin thickening or abnormal axillary lymph nodes are seen. There has been no significant change from prior exams. IMPRESSION: BI-RADS Category 1, Negative mammogram Yearly screening mammography is recommended. Breast Density - Category A, fatty density. A negative radiographic report should not delay biopsy if a dominant or clinically suspicious mass is present. Up to ten percent of cancers are not identified on mammography. A negative report may reinforce clinical impression. Adenosis and dense breasts may obscure an underlying neoplasm. False positive reports average 6 to 10%. Patient will receive a letter notifying them of these results.
== END ==
PROVIDERS: PCP Physician Assistant; Visit Provider Obstetrics & Gynecology
DX: Z12.31 Encounter for screening mammogram for malignant neoplasm of breast (principal)
CPT/HCPCS: 77063; 77067

== ENCOUNTER 2022-08-16 11:04 | Outpatient (REF) | payer BC, SELFPAY ==
[2022-08-16 15:28] LABS: Anion Gap 8.4 mmol/L (3-11); BUN 14 mg/dL (7-18); CO2 28.6 mmol/L (21.0-32.0); CREATININE 0.9 mg/dL (0.55-1.02); Calcium 9.2 mg/dL (8.5-10.1); Calculated LDL 87 mg/dL (<100); Chloride 103 mmol/L (98-107); Cholesterol 148 mg/dL (<200); Estimated GFR 72.28 (mL/min/1.73m2); Glucose 98 mg/dL (74-106); HDL Cholesterol 41 mg/dL (40-60); Potassium 3.8 mmol/L (3.5-5.1); Sodium 140 mmol/L (136-145); Triglyceride 104 mg/dL (<150)
== END 2022-08-16 11:05 | disposition home or self-care (01) ==
LOC: NCHCN 11:04
PROVIDERS: PCP Physician Assistant; Visit Provider Physician Assistant
DX: I10 Essential (primary) hypertension (principal)
CPT/HCPCS: 80048; 80061

== ENCOUNTER 2022-10-21 17:41 | Outpatient (REF) | payer BC, SELFPAY ==
[2022-10-21 14:41] LABS: Source Nasal/Nares
[2022-10-21 17:00] LABS: COVID-19 PCR Negative (Negative)
== END 2022-10-21 17:42 | disposition home or self-care (01) ==
LOC: LBN 17:41
PROVIDERS: PCP Physician Assistant; Visit Provider Physician Assistant Medical
DX: Z20.818 Contact with and (suspected) exposure to other bacterial communicable diseases (principal); Z20.822 Contact with and (suspected) exposure to COVID-19
CPT/HCPCS: 87635; 87070

== ENCOUNTER 2023-03-17 20:01 | Outpatient (REF) | payer BC, SELFPAY ==
--- NOTE | 2023-03-17 08:20 | PAPFT_PTH ---
PATIENT: Daniella Prescott LOC: [facility] U#:[id number] AGE/SX: 62/F ROOM: RE03/17/[address]: Bernadine Bronson DO : 1960 BED: DIS: 03/17/2023 SPEC #: [id number] RECD: 03/19/23 13:13 STATUS: ESTELLE REQ #: [id number] MARTINEZ: 03/17/23 08:[address]: Bernadine Bronson DEPT: [facility] Cytology RECD BY: Mouna Armenta ENTERED: 03/19/23 13:14 SP TYPE: PAPFT OTHR DR: Jeffrey Shrestha Tissues: 1 - CX/ENDOCX FOR PAP SMEARS Procedures: PAP THIN PREP/UVM Screening HPV DNA PROBE Comments: [id number] (HPV 16 & 18/45)
== END 2023-03-17 20:02 | disposition home or self-care (01) ==
LOC: LBN 20:01
PROVIDERS: PCP Physician Assistant; Visit Provider Obstetrics & Gynecology
DX: Z12.4 Encounter for screening for malignant neoplasm of cervix (principal); Z11.51 Encounter for screening for human papillomavirus (HPV)
CPT/HCPCS: 88142; 87624

== ENCOUNTER 2023-03-28 01:28 | Outpatient (CLI) | payer BC, SELFPAY ==
--- NOTE | 2023-03-28 07:35 | DI.MAMMO_ITS ---
Exam(s) MAMMO SCREENING EXAM: MAMMO SCREENING CLINICAL HISTORY: screening. TECHNIQUE: Bilateral full field digital CC and MLO mammographic images were obtained with 3D tomosyn thesis and utilizing computer aided detection (CAD). COMPARISON: Prior mammograms were reviewed. FINDINGS: There has been no significant change in the appearance and distribution of the fibroglandular tissue. There are no CAD designations. There are no new spiculated masses nor malignant appearing microcalcification groups. There is no significant architectural distortion nor skin thickening-retraction. IMPRESSION: No radiographic evidence of malignancy. BI-RADS Category 1 - Negative Breast Density - Category A - Almost entirely fatty Breast density Category C or D implies that the patient has dense breast tissue. Dense breast tissue can make it harder to find cancer on a mammogram. Dense breast tissue is also associated with an incr eased risk of breast cancer. This information about the result of the mammogram report was provided to the patient to raise their awareness. Use this report when you speak with the patient about their risks for breast cancer, which includes their family history. At that time, you may recommend additional screening tests (Ultrasoun d or MRI) as these tests may add significant information. A negative radiographic report should not delay biopsy if a dominant or clinically suspicious mass is present. Up to ten percent of cancers are not identified on mammography. A negative report may reinforce clinical impression. Adenosis and dense breasts may obscure an underlying neoplasm. False positive reports average 6 to 10%. Patient will receive a letter notifying them of these results.
== END 2023-03-28 01:48 ==
LOC: DI 01:28
PROVIDERS: PCP Physician Assistant; Visit Provider Obstetrics & Gynecology
DX: Z12.31 Encounter for screening mammogram for malignant neoplasm of breast (principal)
CPT/HCPCS: 77063; 77067

== ENCOUNTER → 2023-07-25 00:26 | Outpatient (CLI) | payer BC, SELFPAY ==
--- NOTE | 2023-07-25 13:25 | DI.RAD_ITS ---
Exam(s) XR FOOT RT COMPLETE EXAM: XR FOOT RT COMPLETE CLINICAL HISTORY: Pain in right foot,? hardware failure,M79.671. TECHNIQUE: 2D digital imaging was performed of the right foot. Three images were obtained. AP, obl ique and lateral views were obtained. COMPARISON: No exams were available for comparison FINDINGS: BONES: No acute fracture is present. No bony destructive lesion is seen. There are 2 screws seen in t he right 1st metatarsal bone. No suspicious lucencies are seen in or about the orthopedic hardware. JOINTS: No dislocation present. There is mild narrowing of the 1st MTP joint. SOFT TISSUE: Normal. IMPRESSION: No acute abnormality. DATA REPOSITORY: RADIATION DOSE DELIVERED:
--- NOTE | 2023-07-25 13:25 | DI.RAD_ITS ---
Exam(s) XR FOOT LT COMPLETE EXAM: XR FOOT LT COMPLETE CLINICAL HISTORY: Pain in left foot,? hardware failure,M79.672. TECHNIQUE: 2D digital imaging was performed of the left foot. Three images were obtained. AP, obli que and lateral views were obtained. COMPARISON: No exams were available for comparison FINDINGS: BONES: No acute fracture is present. No bony destructive lesion is seen. There are 2 orthopedic screw s seen in the 1st metatarsal bone. No suspicious lucencies are seen in or about the orthopedic hardw are. JOINTS: No dislocation present. There is mild joint space narrowing the 1st MTP joint. The joint spa marvin are otherwise well maintained. SOFT TISSUE: Normal. IMPRESSION: No acute abnormality. DATA REPOSITORY: RADIATION DOSE DELIVERED:
== END ==
PROVIDERS: PCP Physician Assistant; Visit Provider Podiatrist
DX: M79.671 Pain in right foot (principal); M79.672 Pain in left foot
CPT/HCPCS: 73630

== ENCOUNTER 2023-08-11 13:48 | Outpatient (REF) | payer BC, SELFPAY ==
[2023-08-11 15:38] LABS: ALT 29 U/L (14-59); AST 20 U/L (15-37); Albumin 4.2 g/dL (3.4-5.0); Alkaline Phosphatase 85 U/L (46-116); BUN 17 mg/dL (7-18); Bilirubin, Total 0.9 mg/dL (0.2-1.0); Calcium 9.7 mg/dL (8.5-10.1); Calculated LDL 105 mg/dL (<100); Chloride 101 mmol/L (98-107); Cholesterol 185 mg/dL (<200); Glucose 97 mg/dL (74-106); HDL Cholesterol 52 mg/dL (40-60); Potassium 3.4 mmol/L (3.5-5.1); Sodium 141 mmol/L (136-145); Total Protein 7.5 g/dL (6.4-8.2); Triglyceride 143 mg/dL (<150)
== END 2023-08-11 13:49 | disposition home or self-care (01) ==
LOC: NCHCN 13:48
PROVIDERS: PCP Physician Assistant; Referring Provider Physician Assistant; Visit Provider Physician Assistant
DX: E78.5 Hyperlipidemia, unspecified (principal); I10 Essential (primary) hypertension
CPT/HCPCS: 80053; 80061

== ENCOUNTER 2024-03-23 01:27 | Outpatient (CLI) | payer BC, SELFPAY ==
[2024-03-23] MEDS: Gadoterate meglumine 20 ML VIAL 15 ML IVP (10:59)
--- NOTE | 2024-03-23 11:30 | DI.MRI_ITS ---
Exam(s) MR IAC BRAIN WO/W EXAM: MR IAC BRAIN WO/W CLINICAL HISTORY: SUDDEN SENSORINEURAL HEARING LOSS, H90.5. TECHNIQUE: Multiplanar multisequence MRI of the brain and internal auditory canals was performed. CONTRAST MATERIAL: IV Contrast: 15 mL of Dotarem contrast administered. COMPARISON: No exams were available for comparison FINDINGS: VENTRICLES AND EXTRA AXIAL SPACES: Normal in size and morphology for the patient's age. HEMORRHAGE: None. CEREBRAL PARENCHYMA: No focus of restricted diffusion to suggest acute infarct. No space-occupying le cristian identified. MIDLINE SHIFT: None. BRAINSTEM/CEREBELLUM: Normal. CALVARIUM: Normal. ENHANCEMENT: There is a 1.2 x 0.5 cm extra-axial mass along the left frontal convexity which shows ho mogeneous enhancement. The finding is most consistent with a meningioma. (Series [id number], image 136). VISUALIZED PARANASAL SINUSES/MASTOIDS: Clear. [place]: Normal flow void. PITUITARY GLAND: Unremarkable. IAC/CP ANGLE: The internal auditory canals are within normal limits. The cerebellar pontine angles ar e unremarkable. No enhancing lesions are seen. Visualized portion of the facial nerves appear within normal limits. OTHER FINDINGS: None. IMPRESSION: 1. Unremarkable MRI of the brain and internal auditory canals. 2. 1.2 x 0.5 cm homogeneously enhancing extra-axial mass along the left frontal convexity consistent with a meningioma. 3. No evidence of an acute infarct. DATA REPOSITORY:
== END 2024-03-23 01:47 ==
LOC: DI 01:27
PROVIDERS: PCP Physician Assistant; Visit Provider Physician Assistant
DX: H90.5 Unspecified sensorineural hearing loss (principal)
CPT/HCPCS: 70553

== ENCOUNTER 2024-08-06 00:14 | Outpatient (CLI) | payer BC, SELFPAY ==
--- NOTE | 2024-08-06 | DI.MRI_ITS ---
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 TECHNIQUE: Multiplanar multisequence MRI of the brain was performed. CONTRAST MATERIAL: IV Contrast: 16 ML of Dotarem contrast administered. COMPARISON: MR MR IAC BRAIN WO/W from 03/23/2024 FINDINGS: VENTRICLES AND EXTRA AXIAL SPACES: Normal in size and morphology for the patient's age. HEMORRHAGE: None. CEREBRAL PARENCHYMA: No focus of restricted diffusion to suggest acute infarct. No space-occupying le cristian identified. BRAINSTEM/CEREBELLUM: Normal. CALVARIUM: Normal. ENHANCEMENT: Focal area of thickening and enhancement in overlying the left superior frontal convexit ies. It is measured at 9 by 5 x 8 millimeters on today's exam and appears unchanged. No new abnorma lities. VISUALIZED PARANASAL SINUSES/MASTOIDS: Clear. Orbits: Unremarkable. Pituitary: Not enlarged. Vasculature: Normal flow voids. IMPRESSION: Stable small meningioma over the left frontal convexities. DATA REPOSITORY:
[2024-08-06] MEDS: Gadoterate meglumine 20 ML SYRINGE 16 ML IVP (08:24)
[2024-08-06] MEDS: Normal Saline Flush 10 ML SYR IVP (08:25)
== END 2024-08-06 00:34 ==
LOC: DI 00:14
PROVIDERS: PCP Physician Assistant; Visit Provider Physician Assistant
DX: D32.0 Benign neoplasm of cerebral meninges (principal)
CPT/HCPCS: 70553

== ENCOUNTER 2024-08-19 10:00 | Outpatient (REF) | payer BC, SELFPAY ==
[2024-08-19 15:30] LABS: HCT 38.7 % (36.0-46.0); HGB 12.5 g/dL (11.2-15.7); MCH 27.4 pg (27.0-33.0); MCHC 32.3 % (32.0-36.0); MCV 85 fL (80-95); MPV 10.1 fL (8.0-11.0); Platelet Count 350 10^3/uL (130-400); RBC 4.57 10^6/uL (3.93-5.22); RDW 13.2 % (11.7-14.6); RDW-SD 41.1 fL; WBC 5.55 10^3/uL (4.4-10.8)
[2024-08-19 16:58] LABS: ALT 26 U/L (14-59); AST 18 U/L (15-37); Alkaline Phosphatase 76 U/L (46-116); BUN 17 mg/dL (7-18); Bilirubin, Total 0.8 mg/dL (0.2-1.0); Calcium 9.5 mg/dL (8.5-10.1); Calculated LDL 89 mg/dL (<100); Chloride 104 mmol/L (98-107); Cholesterol 174 mg/dL (<200); Estimated GFR 62.91 (mL/min/1.73m2); Glucose 84 mg/dL (74-106); HDL Cholesterol 52 mg/dL (>or=50); Potassium 3.8 mmol/L (3.5-5.1); Sodium 145 mmol/L (136-145); Triglyceride 168 mg/dL (<150)
== END 2024-08-19 10:01 | disposition home or self-care (01) ==
LOC: NCHCN 10:00
PROVIDERS: PCP Physician Assistant; Visit Provider Physician Assistant
DX: I10 Essential (primary) hypertension (principal); E78.5 Hyperlipidemia, unspecified
CPT/HCPCS: 80053; 80061; 85027

== ENCOUNTER 2024-09-16 01:01 | Outpatient (CLI) | payer BC, SELFPAY ==
--- NOTE | 2024-09-16 12:38 | DI.MAMMO_ITS ---
Exam(s) MAMMO SCREENING EXAM: MAMMO SCREENING CLINICAL HISTORY: Screening, Z12.39 TECHNIQUE: Mammograms were interpreted according to the usual protocol including computer analysis w [employer] CAD system, tomosynthesis and C-view imaging. COMPARISON: 2014 through 2022 FINDINGS: The breasts are composed of mainly fatty density , Breast Density category A. No suspicious masses or suspicious microcalcifications are seen. No skin thickening or abnormal axillary lymph nodes are seen. There has been no significant change from prior exams. IMPRESSION: BI-RADS Category 1, Negative mammogram Yearly screening mammography is recommended. Breast Density - Category A, fatty density. A negative radiographic report should not delay biopsy if a dominant or clinically suspicious mass is present. Up to ten percent of cancers are not identified on mammography. A negative report may reinforce clinical impression. Adenosis and dense breasts may obscure an underlying neoplasm. False positive reports average 6 to 10%. Patient will receive a letter notifying them of these results.
== END 2024-09-16 01:21 ==
LOC: DI 01:01
PROVIDERS: PCP Physician Assistant; Visit Provider Physician Assistant
DX: Z12.31 Encounter for screening mammogram for malignant neoplasm of breast (principal); R92.313 Mammographic fatty tissue density, bilateral breasts
CPT/HCPCS: 77063; 77067

== ENCOUNTER 2024-11-26 01:05 | Outpatient (CLI) | payer BC, SELFPAY ==
[2024-11-26 12:32] LABS: TSH (W/Ref FT4) 0.53 uIU/mL (0.36-3.74); Vitamin B12 1037 pg/mL (193-986)
== END 2024-11-26 01:06 | disposition home or self-care (01) ==
LOC: LBO 01:05
PROVIDERS: PCP Physician Assistant; Visit Provider Psychiatry & Neurology Neurology
DX: G62.9 Polyneuropathy, unspecified (principal); R41.3 Other amnesia
CPT/HCPCS: 36415; 82607; 84443

== ENCOUNTER 2025-03-10 04:30 | Outpatient (CLI) | payer BC, SELFPAY ==
--- NOTE | 2025-03-10 13:15 | DI.RAD_ITS ---
Exam(s) XR SHOULDER RT COMPLETE 2+V EXAM: XR SHOULDER RT COMPLETE 2+V CLINICAL HISTORY: PAIN RT SHOULDER M25.511 NO TRAUMA. TECHNIQUE: 2D digital imaging was performed. Five views. COMPARISON: CR XR shoulder LT complete 2+V from 11/13/2018 FINDINGS: BONES: No acute fracture is present. No bony destructive lesion is seen. JOINTS: No dislocation present. There are no significant degenerative changes at the acromioclavicular or glenohumeral joints. SOFT TISSUE: Normal. IMPRESSION: Unremarkable radiographs of the right shoulder. DATA REPOSITORY: RADIATION DOSE DELIVERED:
== END 2025-03-10 04:50 ==
PROVIDERS: PCP Physician Assistant; Visit Provider Physician Assistant
DX: M25.511 Pain in right shoulder (principal)
CPT/HCPCS: 73030

== ENCOUNTER 2025-03-31 16:04 | Outpatient (REF) | payer BC, SELFPAY ==
[2025-03-31 18:59] LABS: ESR 13 mm/hr (0-30)
[2025-03-31 19:11] LABS: C-Reactive Protein < 0.50 mg/dL (<or=0.5)
[2025-04-04 10:48] LABS: Lyme Ab w Rflx to Lyme Confirm Negative (Negative)
== END 2025-03-31 16:05 | disposition home or self-care (01) ==
LOC: NCHCN 16:04
PROVIDERS: PCP Physician Assistant; Visit Provider Physician Assistant
DX: M25.50 Pain in unspecified joint (principal)
CPT/HCPCS: 85652; 86200; 86038; 86140; 86225; 86431; 86618